=== PATIENT | female | born 1965 | race Caucasian/White ===

== ENCOUNTER 2018-01-31 13:41 | Outpatient (CLI) | payer MEDICARE ==
[2018-01-31 18:16] LABS: BASOPHILS % (AUTO) 0.6 %; EOSINOPHILS # (AUTO) 0.2 10^3/uL (0.0-0.7); EOSINOPHILS % (AUTO) 3.5 %; HGB - HEMOGLOBIN 13.7 g/dL (12.0-16.0); LYMPHOCYTES # (AUTO) 2.8 10^3/uL (1.5-3.5); LYMPHOCYTES % (AUTO) 44.3 %; MEAN CORPUSCULAR HEMOGLOBIN 31.4 pg (27.0-31.0); MEAN CORPUSCULAR HGB CONC 34.1 g/dL (32.0-36.0); MEAN CORPUSCULAR VOLUME 92.1 fL (81.0-99.0); MEAN PLATELET VOLUME 9.4 fL (7.9-10.8); MONOCYTES # (AUTO) 0.6 10^3/uL (0.0-1.0); MONOCYTES % (AUTO) 9.4 %; NEUTROPHILS # (AUTO) 2.7 10^3/uL (1.5-6.6); NEUTROPHILS % (AUTO) 42.2 %; PLT - PLATELET COUNT 199 10^3/uL (130-450); RED BLOOD COUNT 4.34 10^6/uL (4.20-5.40); RED CELL DISTRIBUTION WIDTH 12.5 % (12.0-15.0); WHITE BLOOD COUNT 6.3 x10^3/uL (4.8-10.8)
[2018-01-31 19:42] LABS: ALBUMIN 4.2 g/dL (3.2-5.5); ALBUMIN/GLOBULIN RATIO 1.6 (1.0-2.2); BILIRUBIN,TOTAL 0.4 mg/dL (0.2-1.0); CALCIUM 9.2 mg/dL (8.5-10.3); CREATININE 0.7 mg/dL (0.4-1.0); TOTAL PROTEIN 6.8 g/dL (6.7-8.2)
== END 2018-01-31 13:42 | disposition home or self-care (01) ==
LOC: LAB.F 13:41
PROVIDERS: ATTEND Physician Assistant Medical
DX: Z51.81 Encounter for therapeutic drug level monitoring (principal); Z79.899 Other long term (current) drug therapy
CPT/HCPCS: 36415; 80053; 85025

== ENCOUNTER 2018-02-04 09:45 | Outpatient (CLI) | payer MEDICARE ==
[2018-02-04 19:19] LABS: FOLLICLE STIMULATING HORMONE 155.87 mIU/mL
[2018-02-04 19:20] LABS: LUTEINIZING HORMONE 82.57 mIU/mL
== END 2018-02-04 09:46 | disposition home or self-care (01) ==
LOC: LAB.F 09:45
PROVIDERS: ATTEND Physician Assistant Medical
DX: N95.9 Unspecified menopausal and perimenopausal disorder (principal)
CPT/HCPCS: 36415; 82670; 83001; 83002

== ENCOUNTER 2019-07-01 09:14 | Outpatient (CLI) | payer MEDICARE ==
--- NOTE | 2019-07-08 08:27 | Mammography Report ---
Reason: ROUTINE MAMMO Procedure Date: 07/01/2019 Accession Number: [id number] / [id number] Procedure: ELLEN - Screening Mammo w/Jesus Alberto CPT Code: Final Report FULL RESULT: EXAM: Screening Mammo w/Jesus Alberto DATE: 07/01/2019 9:44 AM CLINICAL HISTORY: Screening encounter. History of early menses. TECHNIQUE: (B) - Bilateral CC and MLO views were obtained. Right laterally exaggerated CC view is obtained. COMPARISON: None PARENCHYMAL PATTERN: (A) - The breast(s) demonstrate(s) scattered fibroglandular densities. FINDINGS: In the left upper outer breast at the 2:00 position 5 cm from the nipple is a focal asymmetry which appears hyperdense, this should be clarified with spot views and possibly ultrasound unless prior comparison imaging demonstrating greater than two-year stability is made available for review. There are no suspicious masses, calcifications, or areas of distortion of the right breast. IMPRESSION: Incomplete examination. BI-RADS category 0. RECOMMENDATION: (AD[facility]) - Additional views using both Mammography and Ultrasound recommended. Left breast BI-RADS CATEGORY: (0) - Incomplete Examination - need additional evaluation. STANDARD QUALIFYING STATEMENTS: 1. This examination was not reviewed with the aid of Computer-Aided Detection (CAD). 2. A negative or benign imaging report should not preclude biopsy if clinically suspicious findings are present. 3. Dense breasts may obscure an underlying neoplasm. 4. This examination was reviewed with the aid of 3D breast imaging (tomosynthesis).
== END 2019-07-01 09:15 | disposition home or self-care (01) ==
LOC: DI 09:14
PROVIDERS: ATTEND Physician Assistant Medical
DX: Z12.31 Encounter for screening mammogram for malignant neoplasm of breast (principal); R92.8 Other abnormal and inconclusive findings on diagnostic imaging of breast
CPT/HCPCS: 77063; 77067

== ENCOUNTER 2020-06-22 11:59 | Outpatient (CLI) | payer MEDICARE ==
--- NOTE | 2020-06-22 13:03 | XRAY Report ---
PROCEDURE: Lumbar Spine 2 View INDICATIONS: LOW BACK PAIN TECHNIQUE: views of the lumbar spine were acquired. COMPARISON: None. FINDINGS: Bones: 5 [id number] vertebrae are present. There is mildly dextroscoliotic the low thoracic haley ny alignment with a slight compensatory levoscoliotic curvature centered at the L2-L3 level of the garcía mbosacral spine. No vertebral body compression fractures. No suspicious bony lesions. Soft tissues: Overlying bowel gas pattern is normal. No suspicious soft tissue calcifications. IMPRESSION: The degenerative disc disease present is mild in severity with only a small degree of di sc height reduction seen at L3-4 and L4-5. Facet osteoarthritis from L3 inferiorly becomes progressiv ilia more prominent and is most pronounced at L4-5 and L5-S1. There is potential for mild impingement on the individual nerve roots at these lower 2 levels. Reviewed by: Sang Stewart MD on 06/22/2020 1:02 PM PST Approved by: Sang Stewart MD on 06/22/2020 1:02 PM PST Station ID: [id number]
--- NOTE | 2020-06-22 13:06 | XRAY Report ---
PROCEDURE: Pelvis 1 View INDICATIONS: LOW BACK PAIN TECHNIQUE: 1 view(s) of the pelvis acquired. COMPARISON: None. FINDINGS: Bones: No fractures or dislocations. No suspicious bony lesions. Soft tissues: Visualized bowel gas pattern is normal. No suspicious soft tissue calcifications. IMPRESSION: This is a normal study. Reviewed by: Sang Stewart MD on 06/22/2020 1:04 PM [facility] Approved by: Sang Stewart MD on 06/22/2020 1:04 PM [facility] Station ID: [id number]
== END 2020-06-22 23:59 | disposition home or self-care (01) ==
LOC: DI.WCP 11:59
PROVIDERS: ATTEND Internal Medicine Rheumatology
DX: M54.5 Low back pain (principal); M51.36 Other intervertebral disc degeneration, lumbar region; M47.817 Spondylosis without myelopathy or radiculopathy, lumbosacral region

== ENCOUNTER 2023-11-18 08:40 | Outpatient (CLI) | payer MEDICARE, BC ==
--- NOTE | 2023-11-18 10:34 | MRI Report ---
PROCEDURE: Lumbar Spine WO INDICATIONS: LUMBAR SPINAL STENOSIS TECHNIQUE: Noncontrast sagittal T1 spin echo and T2 fast echo, sagittal STIR, axial T1 and T2 fast spin echo thr ough the lumbar spine. In cases with scoliosis, additional coronal T2 fast spin echo may be performe d. COMPARISON: Lumbar spine 2 views dated 04/21/2021. FINDINGS: Image quality: Excellent. Alignment and Curvature: Very mild levocurvature centered at L2. Trace retrolisthesis of L1 on L2. Tr agus anterolisthesis of L4 on L5. Bone Marrow: Marrow is of normal overall signal. No acute vertebral body compression fractures. Spinal Cord: Conus medullaris terminates at the T12-L1 level. Visualized cord demonstrates normal s ignal and size. Paraspinous Soft Tissues: No paravertebral masses. T11-T12: Minimal left paracentral disc protrusion. Mild facet hypertrophy. No canal stenosis or ryanne inal stenosis. T12-L1: Chronic disc height loss. Diffuse disc bulge with mild superimposed right paracentral disc p rotrusion. No significant canal stenosis or foraminal stenosis. L1-L2: Chronic disc height loss. Disc bulge. Facet hypertrophy. No significant canal stenosis. Mil d bilateral foraminal stenosis. L2-L3: Disc bulge. Mild facet hypertrophy. No canal stenosis or foraminal stenosis. L3-L4: Chronic disc height loss. Mild facet hypertrophy. No canal stenosis or significant foraminal stenosis. L4-L5: Chronic disc height loss. Disc bulge. Facet hypertrophy. Remote left hemilaminectomy. Mild s tenosis of the right side of the canal. Mild right foraminal narrowing and mild to moderate left fora corinne narrowing. L5-S1: Facet hypertrophy. Minimal disc bulge. No canal stenosis or significant foraminal stenosis. IMPRESSION: 1. Multilevel underlying facet arthropathy. 2. Remote left hemilaminectomy at L4-L5. There is mild residual stenosis, involving the right side of the canal. 3. No significant canal stenosis at other levels. No foraminal nerve root impingement. Reviewed by: Lazaro Rae MD on 11/18/2023 10:33 AM PDT Approved by: Lazaro Rae MD on 11/18/2023 10:33 AM PDT Station ID: [id number]
== END 2023-11-18 08:41 | disposition home or self-care (01) ==
LOC: DI 08:40
PROVIDERS: ATTEND Physician Assistant
DX: M51.36 Other intervertebral disc degeneration, lumbar region (principal); M48.061 Spinal stenosis, lumbar region without neurogenic claudication; M47.816 Spondylosis without myelopathy or radiculopathy, lumbar region; M51.37 Other intervertebral disc degeneration, lumbosacral region; M47.817 Spondylosis without myelopathy or radiculopathy, lumbosacral region; M51.24 Other intervertebral disc displacement, thoracic region; M51.25 Other intervertebral disc displacement, thoracolumbar region